=== PATIENT | male | born 1990 | race Caucasian/White ===

== ENCOUNTER 2016-03-06 20:09 | Inpatient (IN) | payer MEDICARE ==
[2016-03-06] MEDS ORDERED: MORPHINE SULFATE 4 MG INJ IV ONE ×2 (20:18→21:51)
[2016-03-06] MEDS ORDERED: Pepcid 20 MG VIAL IV ONE ×2 (20:18→20:37)
[2016-03-06] MEDS ORDERED: Sodium Chloride 0.9% 1000 ML 1,000 ML IV SCH (20:30)
[2016-03-06] MEDS ORDERED: Sodium Chloride 0.9% 1000 ML 1,000 ML ONE (20:37)
[2016-03-06] MEDS ORDERED: MORPHINE SULFATE 4 MG INJ ONE ×2 (20:37→21:54)
[2016-03-06 20:39] LABS: Mean Cell Volume 99.1 fl (78-100); Mean Corpuscular Hemoglobin 32.2 pg (26-32); Mean Platelet Volume 8.9 fl (6-9.5); Platelet Count 208 K/mm3 (150-450); Red Blood Count 3.35 M/mm3 (4.1-5.6)
[2016-03-06 20:52] LABS: White Blood Count 1.5 K/mm3 (4.0-10.5)
[2016-03-06 21:01] LABS: ALBUMIN 4.1 g/dL (3.4-5.0); ALKALINE PHOSPHATASE 230 U/L (46-116); ANION GAP 11.6 MEQ/L (5-15); BILIRUBIN,TOTAL 0.3 mg/dL (0.2-1.0); BLOOD UREA NITROGEN 18 mg/dL (9-20); CHLORIDE 107 mEq/L (98-107); Carbon Dioxide 26.7 mEq/L (21-32); Glucose 113 MG/DL (70-110); LIPASE 303 U/L (73-393); MAGNESIUM 3.9 mg/dL (1.8-2.4); Potassium 4.4 mEq/L (3.5-5.1); SGOT/AST 406 U/L (15-37); SGPT/ALT 509 U/L (12-78); SODIUM 141 mEq/L (136-145); Total Protein 7.4 gm/dL (6.4-8.2)
[2016-03-06 21:05] LABS: Bacteria RARE /HPF (NEGATIVE); COMPLETE URINE MICROSCOPIC? YES; Collection Type CLEAN CATCH; Epithelial Cells FEW /HPF (FEW)
[2016-03-06] MEDS ORDERED: Zofran 4 MG/2 ML VIAL IV ONE (21:09)
[2016-03-06] MEDS ORDERED: Zofran 4 MG/2 ML VIAL ONE (21:11)
--- NOTE | 2016-03-06 21:46 | ERPHSYRPT ---
- History of Present Illness Time Seen by Provider: 03/06/16 20:17 Source: patient, family (mother) Patient Subjective Stated Complaint: pt was removed from the drivers seat of the car bent over crying with abd pain -the pt is moaning and crying with co abd pain -the abd is large rotund and his body is thin Triage Nursing Assessment: pt is awake and alert and able to answer questions Physician History: CC: abd pain Hx: 25 y/o male patient who drove a car here accompanied by his mother. He reports abdominal pain, radiating up to his chest, diarrhea that is copious and continuous. Some nausea. No fever or chills. Symptoms rather severe. Hx is convoluted. He reports prior GERD, hypoglycemia, anemia. Mother states he has had recent bone marrow bx. He reports prior hip fx, osteopenia, twisted bowel and intestinal obstruction, surgery for PUD, and bowel abscess. He reports taking zofran, protonix, and tylenol #3. Social: Nonsmoker, moved here from [place]. Old records from [facility] and [place] were reviewed. He has had several ER visits and admission, usually involving bowel dilatation and possible obstructions. He has had normal Fe, thyroid studies, B12, Vit D levels. Unknown bone marrow bx results. He has had several abnl CT scans. He has had intermittent elevation of transaminases. HIV was check and pt states no hx of HIV. He has signed out of both facililties apparently against advise and this seems to sometimes involve opiod substances. [facility] was considering personality disorder, eating disorder, and malabsorption syndrome. He has osteopenia, multiple old spinal compression fractures. Timing/Duration: today Severity: severe Allergies/Adverse Reactions: clarithromycin [From Biaxin] Allergy (Verified 03/06/16 20:24) erythromycin base Allergy (Verified 03/06/16 20:24) heparin Allergy (Verified 03/06/16 20:24) ketorolac [From Toradol] Allergy (Verified 03/06/16 20:24) Penicillins Allergy (Verified 03/06/16 20:24) prednisone Allergy (Verified 03/06/16 20:24) tramadol Allergy (Verified 03/06/16 20:24) warfarin [From Coumadin] Allergy (Verified 03/06/16 20:24) Home Medications: Codeine Phosphate/APAP #3 [Tylenol #3 Tablet] 1 tab DAILY 03/06/16 [History] Ondansetron HCl [Zofran] 1 tab DAILY 03/06/16 [History] Pantoprazole 20 mg [Protonix 20MG Tablet] 1 tab DAILY 03/06/16 [History] Hx Tetanus, Diphtheria Vaccination/Date Given: Yes Hx Influenza Vaccination/Date Given: No Hx Pneumococcal Vaccination/Date Given: No - Review of Systems Constitutional: Malaise, Weakness, No Fever, No Chills Eyes: No Symptoms, No Vision Changes Ears, Nose, & Throat: No Throat Pain Respiratory: No Cough, No Dyspnea Cardiac: Chest Pain Abdominal/Gastrointestinal: Abdominal Pain, Nausea, Diarrhea Genitourinary Symptoms: No Dysuria Musculoskeletal: Back Pain (chronic) Skin: Rash Neurological: No Focal Weakness All Other Systems: Reviewed and Negative - Past Medical History Pertinent Past Medical History: Yes Respiratory History: Pneumonia GI Medical History: GERD, Hernia, Ulcer Other Medical History: scoliosis - frequent kidney stones - Past Surgical History Past Surgical History: Yes Other Surgical History: bowel resection - PUD repair - hernia repair - Social History Smoking Status: Never smoker Exposure to second hand smoke: No Drug Use: none Patient Lives Alone: No - Nursing Vital Signs Nursing Vital Signs: Initial Vital Signs Temperature 99 F Temperature Source Rectal Pulse Rate 68 Respiratory Rate 16 Blood Pressure 106/50 Pain Intensity 8 - Physical Exam General Appearance: alert, other (cachectic, chronically ill appearing with stigmata of liver disease, pale) Eye Exam: PERRL/EOMI Ears, Nose, Throat Exam: dry mucous membranes Neck Exam: supple Respiratory Exam: normal breath sounds Cardiovascular Exam: regular rate/rhythm Gastrointestinal/Abdomen Exam: soft, tenderness (diffuse discomfort, distended, dilated cutaneous veins) Male Genitalia Exam: other (atrophic genitalia) Extremity Exam: other (edematous feet that are cool with diminished pulses and some acral cyanosis) Neurologic Exam: alert, oriented x 3, other (no focal weakness) Skin Exam: rash (some vitiligo changes, some erythematous rash plaque scattered with well demarcated borders) SpO2: 99 Oxygen Delivery: Room Air - Course Nursing assessment & vital signs reviewed: Yes EKG Interpreted by Me: RATE (65), Sinus Rhythm, NORMAL AXIS, NORMAL INTERVALS ( [id number]), Q-wave (?inferior) - Radiology Exams cxr X-ray Interpretation: Teleradiologist Report (question of patchy left perihilar infiltrate, low lung volumes.) - CT Exams abd/pelvis CT Interpretation: Tele-radiologist Report (adynamic ileus with stomach, small bowel, and colon distended by air and fluid unchanged from prior.) Ordered Tests: Active Orders 24 hr Category Date Time Status Clean Catch Urine Specimen STAT Care 03/06/16 20:18 Active EKG-ER Only STAT Care 03/06/16 20:18 Active IV Insertion STAT Care 03/06/16 20:18 Active ABDOMEN AND PELVIS W CONTRAST [CT] Stat Exams 03/06/16 20:19 Taken CHEST 1 VIEW (PORTABLE) Stat Exams 03/06/16 20:19 Taken CBC W DIFF Stat Lab 03/06/16 20:30 Completed CMP Stat Lab 03/06/16 20:30 Completed LIPASE Stat Lab 03/06/16 20:30 Completed Lactic Acid Urgent Lab 03/06/16 20:18 Completed MAGNESIUM Stat Lab 03/06/16 20:30 Completed Manual Differential NC Stat Lab 03/06/16 20:30 Completed UA W/ MICROSCOPIC Stat Lab 03/06/16 20:50 Completed Urine Triage Profile Stat Lab 03/06/16 20:50 Completed Vitamin B12 Routine Lab 03/06/16 20:30 Completed Transfer Order Routine Transfer 03/06/16 23:52 Ordered Medication Summary Generic Name Dose Route Start Last Admin Trade Name Freq PRN Reason Stop Dose Admin Sodium Chloride 1,000 mls @ 100 mls/hr 03/06/16 20:30 03/06/16 20:39 Sodium Chloride 0.9% 1000 Ml IV 04/05/16 20:29 100 mls/hr .Q10H VALERIA Administration Sodium Chloride 500 mls @ 999 mls/hr 03/06/16 23:50 Sodium Chloride 0.9% 1000 Ml IV 03/07/16 00:20 .Q31M STA Discontinued Medications Generic Name Dose Route Start Last Admin Trade Name Freq PRN Reason Stop Dose Admin Famotidine 20 mg 03/06/16 20:18 03/06/16 20:39 Pepcid 20 Mg Vial IV 03/06/16 20:19 20 mg STAT ONE Administration Famotidine Confirm 03/06/16 20:37 Pepcid 20 Mg Vial Administered 03/06/16 20:38 Dose 20 mg IV .STK-MED ONE Sodium Chloride Confirm 03/06/16 20:37 Sodium Chloride 0.9% 1000 Ml Administered 03/06/16 20:38 Dose 1,000 mls @ ud .ROUTE .STK-MED ONE Morphine Sulfate 4 mg 03/06/16 20:18 03/06/16 20:39 Morphine Sulfate 4 Mg Inj IV 03/06/16 20:19 4 mg STAT ONE Administration Morphine Sulfate Confirm 03/06/16 20:37 Morphine Sulfate 4 Mg Inj Administered 03/06/16 20:38 Dose 4 mg .ROUTE .STK-MED ONE Morphine Sulfate 4 mg 03/06/16 21:51 03/06/16 21:56 Morphine Sulfate 4 Mg Inj IV 03/06/16 21:52 4 mg STAT ONE Administration Morphine Sulfate Confirm 03/06/16 21:54 Morphine Sulfate 4 Mg Inj Administered 03/06/16 21:55 Dose 4 mg .ROUTE .STK-MED ONE Ondansetron HCl 4 mg 03/06/16 21:09 03/06/16 21:16 Zofran 4 Mg/2 Ml Vial IV 03/06/16 21:10 4 mg STAT ONE Administration Ondansetron HCl Confirm 03/06/16 21:11 Zofran 4 Mg/2 Ml Vial Administered 03/06/16 21:12 Dose 4 mg .ROUTE .STK-MED ONE Lab/Rad Data: Laboratory Result Diagrams 03/06/16 20:30 03/06/16 20:30 Laboratory Results 03/06/16 03/06/16 03/06/16 Range/Units 20:50 20:50 20:30 WBC (4.0-10.5) K/mm3 RBC (4.1-5.6) M/mm3 Hgb (12.5-18.0) gm/dl Hct (42-50) % MCV (78-100) fl MCH (26-32) pg MCHC (32-36) g/dl RDW (11.5-14.0) % Plt Count (150-450) K/mm3 MPV (6-9.5) fl Segmented Neutrophils (36.-66.) % Lymphocytes (Manual) (24-44) % Monocytes (Manual) (0.0-12.0) % Differential Comment Platelet Estimate (NORMAL) Anisocytosis Sodium (136-145) mEq/L Potassium (3.5-5.1) mEq/L Chloride (98-107) mEq/L Carbon Dioxide (21-32) mEq/L Anion Gap (5-15) MEQ/L BUN (9-20) mg/dL Creatinine (0.55-1.30) mg/dl Estimated GFR ML/MIN Glucose (70-110) MG/DL Lactic Acid (0.4-2.0) Calcium (8.5-10.1) mg/dL Magnesium (1.8-2.4) mg/dL Total Bilirubin (0.2-1.0) mg/dL AST (15-37) U/L ALT (12-78) U/L Alkaline Phosphatase (46-116) U/L Ammonia 26 (11-32) MMOL/l Serum Total Protein (6.4-8.2) gm/dL Albumin (3.4-5.0) g/dL Lipase (73-393) U/L Vitamin B12 (193-986) Ur Collection Type CLEAN CATCH Urine Color YELLOW (YELLOW) Urine Appearance CLEAR (CLEAR) Urine pH 9.0 (5-6) Ur Specific [place] 1.020 (1.005-1.025) Urine Protein 30 (Negative) Urine Glucose (UA) NEGATIVE (NEGATIVE) mg/dL Urine Ketones NEGATIVE (NEGATIVE) Urine Nitrite NEGATIVE (NEGATIVE) Urine Bilirubin NEGATIVE (NEGATIVE) Urine Urobilinogen 0.2 (0-1) mg/dL Urine WBC (Auto) NEGATIVE (NEGATIVE) Urine RBC (Auto) NEGATIVE (0-5) Hermes/ul Ur Epithelial Cells FEW (FEW) /HPF Urine Bacteria RARE (NEGATIVE) /HPF Urine Opiates Level POS. (NEGATIVE) Ur Methadone NEG. (NEGATIVE) Urine Barbiturates NEG. (NEGATIVE) Ur Phencyclidine (PCP) NEG. (NEGATIVE) Urine Amphetamine NEG. (NEGATIVE) U Benzodiazepine Level NEG. (NEGATIVE) Urine Cocaine NEG. (NEGATIVE) Urine Marijuana (THC) NEG. (NEGATIVE) Specimen Received 03/06/16:2150 03/06/16 03/06/16 03/06/16 Range/Units 20:30 20:30 20:30 WBC 1.5 L* (4.0-10.5) K/mm3 RBC 3.35 L (4.1-5.6) M/mm3 Hgb 10.8 L (12.5-18.0) gm/dl Hct 33.2 L (42-50) % MCV 99.1 (78-100) fl MCH 32.2 H (26-32) pg MCHC 32.5 (32-36) g/dl RDW 13.0 (11.5-14.0) % Plt Count 208 (150-450) K/mm3 MPV 8.9 (6-9.5) fl Segmented Neutrophils 67 H (36.-66.) % Lymphocytes (Manual) 24 (24-44) % Monocytes (Manual) 9 (0.0-12.0) % Differential Comment ABNORMAL Platelet Estimate NORMAL (NORMAL) Anisocytosis 1+ Sodium 141 (136-145) mEq/L Potassium 4.4 (3.5-5.1) mEq/L Chloride 107 (98-107) mEq/L Carbon Dioxide 26.7 (21-32) mEq/L Anion Gap 11.6 (5-15) MEQ/L BUN 18 (9-20) mg/dL Creatinine 0.72 (0.55-1.30) mg/dl Estimated GFR > 60 ML/MIN Glucose 113 H (70-110) MG/DL Lactic Acid (0.4-2.0) Calcium 8.2 L (8.5-10.1) mg/dL Magnesium 3.9 H (1.8-2.4) mg/dL Total Bilirubin 0.3 (0.2-1.0) mg/dL AST 406 H (15-37) U/L ALT 509 H (12-78) U/L Alkaline Phosphatase 230 H (46-116) U/L Ammonia (11-32) MMOL/l Serum Total Protein 7.4 (6.4-8.2) gm/dL Albumin 4.1 (3.4-5.0) g/dL Lipase 303 (73-393) U/L Vitamin B12 1081 H (193-986) Ur Collection Type Urine Color (YELLOW) Urine Appearance (CLEAR) Urine pH (5-6) Ur Specific [place] (1.005-1.025) Urine Protein (Negative) Urine Glucose (UA) (NEGATIVE) mg/dL Urine Ketones (NEGATIVE) Urine Nitrite (NEGATIVE) Urine Bilirubin (NEGATIVE) Urine Urobilinogen (0-1) mg/dL Urine WBC (Auto) (NEGATIVE) Urine RBC (Auto) (0-5) Hermes/ul Ur Epithelial Cells (FEW) /HPF Urine Bacteria (NEGATIVE) /HPF Urine Opiates Level (NEGATIVE) Ur Methadone (NEGATIVE) Urine Barbiturates (NEGATIVE) Ur Phencyclidine (PCP) (NEGATIVE) Urine Amphetamine (NEGATIVE) U Benzodiazepine Level (NEGATIVE) Urine Cocaine (NEGATIVE) Urine Marijuana (THC) (NEGATIVE) Specimen Received 03/06/16 Range/Units 20:18 WBC (4.0-10.5) K/mm3 RBC (4.1-5.6) M/mm3 Hgb (12.5-18.0) gm/dl Hct (42-50) % MCV (78-100) fl MCH (26-32) pg MCHC (32-36) g/dl RDW (11.5-14.0) % Plt Count (150-450) K/mm3 MPV (6-9.5) fl Segmented Neutrophils (36.-66.) % Lymphocytes (Manual) (24-44) % Monocytes (Manual) (0.0-12.0) % Differential Comment Platelet Estimate (NORMAL) Anisocytosis Sodium (136-145) mEq/L Potassium (3.5-5.1) mEq/L Chloride (98-107) mEq/L Carbon Dioxide (21-32) mEq/L Anion Gap (5-15) MEQ/L BUN (9-20) mg/dL Creatinine (0.55-1.30) mg/dl Estimated GFR ML/MIN Glucose (70-110) MG/DL Lactic Acid 2.1 H (0.4-2.0) Calcium (8.5-10.1) mg/dL Magnesium (1.8-2.4) mg/dL Total Bilirubin (0.2-1.0) mg/dL AST (15-37) U/L ALT (12-78) U/L Alkaline Phosphatase (46-116) U/L Ammonia (11-32) MMOL/l Serum Total Protein (6.4-8.2) gm/dL Albumin (3.4-5.0) g/dL Lipase (73-393) U/L Vitamin B12 (193-986) Ur Collection Type Urine Color (YELLOW) Urine Appearance (CLEAR) Urine pH (5-6) Ur Specific [place] (1.005-1.025) Urine Protein (Negative) Urine Glucose (UA) (NEGATIVE) mg/dL Urine Ketones (NEGATIVE) Urine Nitrite (NEGATIVE) Urine Bilirubin (NEGATIVE) Urine Urobilinogen (0-1) mg/dL Urine WBC (Auto) (NEGATIVE) Urine RBC (Auto) (0-5) Hermes/ul Ur Epithelial Cells (FEW) /HPF Urine Bacteria (NEGATIVE) /HPF Urine Opiates Level (NEGATIVE) Ur Methadone (NEGATIVE) Urine Barbiturates (NEGATIVE) Ur Phencyclidine (PCP) (NEGATIVE) Urine Amphetamine (NEGATIVE) U Benzodiazepine Level (NEGATIVE) Urine Cocaine (NEGATIVE) Urine Marijuana (THC) (NEGATIVE) Specimen Received - Progress Progress Note: 03/06/16 22:29 Pt was given zofran, morphine. He appears to have a significant chronic illness with decline. His and his mother's insight into the illness is questionable. Likely has some malabsorption syndrome with associated vitamin deficiencies. ? pellagra? He appears to have stigmata of liver disease. Liver enzymes are again markedly elevated. 03/06/16 22:58 Met with pt and mother. Discussed lab tests here and what is available from [facility]. He appears to have a significant problem. He is very cachectic. He has copious nonbloody diarrhea flowing out here. He asked for addl pain medications. Advised pt he appears to have a malabsoprtion problems and it appears he has decline which likely will end in if the process is not interupted. 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 He does not want transfer. Advised if he goes home it is against out medical advise as he appears to be ill. Mother is considering taking him back to [facility] or [facility] for speciality care as he has been seen at both in the past. He will decide course of action. 03/06/16 23:56 Pt decided for admission here. Called Dr Maza() who agrees for observation, IVF and further care. Counseled pt/family regarding: lab results, diagnosis, need for follow-up, rad results - Departure Time of Disposition: 23:56 Departure Disposition: Observation Clinical Impression: copious diarrhea, Malnutrition, Chronic abdominal pain, Adynamic ileus, Elevated transaminase level Condition: Fair Critical Care Time: No Referrals: DOCTOR,NO FAMILY [Primary Care Provider] -
[2016-03-06 22:11] LABS: ANISOCYTOSIS 1+; Platelet Estimate NORMAL (NORMAL); Total Cells Counted 100
[2016-03-07] MEDS ORDERED: TYLENOL 325 MG PO PRN (00:36)
[2016-03-07] MEDS: D5W/0.45NS W/ 20mEq KCl 1000 ML 1,000 ML IV SCH ×3 (01:22→18:10)
[2016-03-07] MEDS: MORPHINE SULFATE 4 MG INJ IV PRN ×6 (01:22→22:20)
[2016-03-07 06:29] LABS: Mean Cell Volume 100.4 fl (78-100); Mean Corpuscular Hemoglobin 32.7 pg (26-32); Mean Platelet Volume 9.2 fl (6-9.5); Platelet Count 161 K/mm3 (150-450); Red Blood Count 2.78 M/mm3 (4.1-5.6); Red Cell Distribution Width 12.8 % (11.5-14.0)
[2016-03-07 06:33] LABS: White Blood Count 0.7 K/mm3 (4.0-10.5)
[2016-03-07 06:35] LABS: ALBUMIN 3.3 g/dL (3.4-5.0); ALKALINE PHOSPHATASE 190 U/L (46-116); ANION GAP 9.2 MEQ/L (5-15); BILIRUBIN,TOTAL 0.3 mg/dL (0.2-1.0); BLOOD UREA NITROGEN 15 mg/dL (9-20); CHLORIDE 107 mEq/L (98-107); Carbon Dioxide 25.1 mEq/L (21-32); Glucose 82 MG/DL (70-110); Potassium 4.8 mEq/L (3.5-5.1); SGOT/AST 228 U/L (15-37); SGPT/ALT 352 U/L (12-78); SODIUM 137 mEq/L (136-145); Total Protein 5.9 gm/dL (6.4-8.2)
[2016-03-07 09:04] LABS: ATYPICAL LYMPHS 1 %; Eosinophil 3 % (0.00-3.0); Total Cells Counted 100
[2016-03-07 09:05] LABS: ANISOCYTOSIS 1+; Platelet Estimate NORMAL (NORMAL); Poikilocytosis 1+
--- NOTE | 2016-03-07 09:36 | XRAY ---
Indication: Abdominal pain and chronic diarrhea. Multiple contiguous axial images obtained through the abdomen and pelvis using 80 cc of Isovue 370 contrast only. Comparison: February 09, 2016 Lung bases remain hyperinflated with bibasilar fibrosis/scarring. Heart is not enlarged. Again there is paucity of mesenteric fat. There remains marked fluid distended stomach and small/large bowel loops with synchronous fluid leveling favoring ileus similar to the previous exam. No free fluid/air. Reported cholecystectomy. Remaining liver, pancreas, spleen, adrenal glands, kidneys, bladder, and aorta appear unremarkable. Osseous structures remain demineralized again with multilevel thoracolumbar compression deformities. Impression: No appreciable interval change again demonstrating fluid distended stomach and bowel loops with synchronous fluid leveling favoring ileus. Early/mild obstruction not completely excluded in the right clinical setting. No new intra-abdominal/pelvic abnormalities. Also stable osteopenia and multilevel lumbar compression deformities. Comment: Preliminary interpretation was made by C. No discrepancy. CTDI is 11.49
--- NOTE | 2016-03-07 09:40 | XRAY ---
Indication: Abdominal pain. Comparison: None Portable chest demonstrates markedly underinflated chest with left lung infiltrates versus atelectasis without consolidation or large effusion. Right lung clear. Heart is nonenlarged. Bony thorax intact. Abnormally air distended stomach and bowel loops. Impression: 1. Underinflated chest with left lung infiltrates versus atelectasis. Correlate clinically. 2. Abnormal air distended stomach and bowel loops further detailed on same-day CT abdomen/pelvis study. Comment: Preliminary interpretation was made by [facility]. No discrepancy.
[2016-03-07] MEDS: Zofran 4 MG/2 ML VIAL IV PRN (23:35)
[2016-03-08] MEDS: D5W/0.45NS W/ 20mEq KCl 1000 ML 1,000 ML IV SCH (02:12)
[2016-03-08] MEDS: MORPHINE SULFATE 4 MG INJ IV PRN ×6 (02:20→22:29)
[2016-03-08] MEDS: Zofran 4 MG/2 ML VIAL IV PRN ×3 (06:19→20:17)
[2016-03-08] MEDS ORDERED: PHARMACY DOSING REQUEST MC ONE (09:01)
[2016-03-08 09:19] LABS: Mean Cell Volume 100.7 fl (78-100); Mean Platelet Volume 9.8 fl (6-9.5); Platelet Count 177 K/mm3 (150-450); Red Cell Distribution Width 12.7 % (11.5-14.0)
[2016-03-08] MEDS: [UNRECOGNIZED DRUG - OTHER] IV SCH ×8 (09:40→22:33)
[2016-03-08 09:42] LABS: White Blood Count 1.3 K/mm3 (4.0-10.5)
[2016-03-08 10:09] LABS: ANION GAP 7.3 MEQ/L (5-15); BLOOD UREA NITROGEN 9 mg/dL (9-20); CHLORIDE 107 mEq/L (98-107); Carbon Dioxide 35.9 mEq/L (21-32); Glucose 90 MG/DL (70-110); Potassium 3.9 mEq/L (3.5-5.1); SODIUM 146 mEq/L (136-145)
[2016-03-08 10:20] LABS: ANISOCYTOSIS 1+; ATYPICAL LYMPHS 5 %; BAND 2 % (0.0-2.0); Platelet Estimate NORMAL (NORMAL); Poikilocytosis 2+; Total Cells Counted 100
[2016-03-08 10:21] LABS: Toxic Granulation 1+
--- NOTE | 2016-03-08 11:44 | HP ---
HISTORY OF PRESENT ILLNESS: This is a 25 year-old man without a physician in the local area. He presented to the emergency department with severe diarrhea, this has been an ongoing problem for him over at least the past year. He has been at both [facility] and [facility] with similar problems and has been overnight at those hospitals. He has seen Dr. Kelly and Dr. Retana because he also has leukopenia. He was most recently in the emergency room at [facility] on 03/01/2016. The patient reports eight to nine years ago he had laparotomy for a perforated peptic ulcer. I also took some of his history from his past medical records that were obtained by the emergency room doctor last night. In 2014, he had a laparoscopy emergently at [facility] for a twisted bowel and since then he had three loose stools per day. His old records say that he had a bone marrow biopsy at [facility] in [place] but I do not have the results of this. There is a report in 2007 of him having pancreatitis and Clostridium difficile. He has had ultrasounds and CT in 02/29/2016 that have revealed diffuse abdominal and pelvic ascites and hepatic steatosis. He had HIV test done 02/10/2016 that was negative. Hepatitis A, B and C were also checked at that same time and were negative. He had a stool culture on 02/22/2016 that did not grow anything. He had TSH checked on 02/19/2016 that was normal. The patient reports he continues to have abdominal pain and distention. He reports the pain is diffuse. He continues to have perfuse stools that he cannot control. He also reports some pain in his right bottom on the skin. Although he has pain the patient wants to try to advance his diet so we let him eat some crackers. The patient reports he has a history of being lactose intolerant and he does not remember ever being tested for celiac disease but he reports before moving to the [place] he had a provider scribe in [place] that did extensive testing. Again, I do not have any results from this. REVIEW OF SYSTEMS: As noted in the history of present illness. He also denies any fever. PAST MEDICAL HISTORY: Weight loss, malnutrition, chronic diarrhea, pancreatitis, history of Clostridium difficile in 2007. PAST SURGICAL HISTORY: Laparotomy for the perforated peptic ulcer, laparotomy for twisted bowel in 2014 at . He reports a surgery for abscess on his back. Bone marrow biopsy. MEDICATIONS: Tylenol #3 one tablet daily as needed, Zofran 1 tablet daily, pantoprazole 20 mg daily. ALLERGIES: CLARITHROMYCIN, ERYTHROMYCIN, HEPARIN, KETORLAC, WARFARIN, PREDNISONE, TRAMADOL, PENICILLIN. SOCIAL HISTORY: He reports his mother is visiting him here in [place]. He denies any alcohol. He denies tobacco or any illicit drugs or any street drugs. FAMILY HISTORY: Not obtained yet. LABORATORY DATA AND TESTS: His white blood cell count was 0.7 with 51% neutrophils, 41% lymphocytes, hemoglobin 9.1, PLT 161,000. CMP revealed AST 228 down from 406 yesterday, ALT 352 down from 509 yesterday. Alkaline phosphatase 190 down from 230, albumin 3.3. UA negative. Urine tox positive for opiates. He had a CT scan of his abdomen and pelvis which revealed fluid distended stomach and bowel loops with fluid leveling favoring ileus or early mild obstruction not completely in the right clinical setting. No new intra-abdominal or pelvic abnormalities, also stable osteopenia and multilevel lumbar compression deformity. Please see the radiologist report for the full dictation. He also had chest x-ray that was read as underinflated chest with left lung infiltrate versus atelectasis, correlate clinically. Abdominal air distended stomach and bowel loops. ASSESSMENT AND PLAN: 1) Chronic diarrhea. I plan to send studies off to screen for celiac disease as well as cytomegalovirus (CMV), will recheck a stool culture which has already been ordered and Clostridium difficile which has already been ordered. I will also add ova and parasite to this as well. Will try to obtain as many old records as possible. Will continue with IV fluids and close monitoring. 2) Leukopenia. Will try to Dr. Retana's notes. The patient has been afebrile. He has been in reverse isolation. 3) Poor nutrition. The patient reports he is unable to add anything like butter or take Ensure so will continue to advance his diet as tolerated but right now his pain is so bad that he is requiring IV morphine so I told him it would be better to stick with the liquids and the crackers for now.
--- NOTE | 2016-03-08 12:03 | XRAY ---
Indication: Lower abdominal pain. Dilated bowel. Comparison: CT abdomen/pelvis and portable chest one day earlier. 2 views of the abdomen demonstrates air distended stomach and small/large bowel loops with synchronous fluid leveling favoring ileus. No focal bowel dilatation or free air. Solid organs obscured but no gross organomegaly or pathologic visceral calcifications. Single PA chest is slightly better inflated with persistent left hemidiaphragm elevation and minimal bibasilar infiltrates/atelectasis. Heart is not enlarged. No new cardiopulmonary abnormalities. Impression: 1. Stable air distended stomach and bowel loops are Cygnus fluid leveling favoring ileus. 2. Persistent left hemidiaphragm elevation with stable minimal bibasilar infiltrates/atelectasis. No new cardiopulmonary abnormalities.
--- NOTE | 2016-03-08 17:39 | PCM.NOTE ---
Date and Time: 03/08/16 173 Subjective Assessment: He continues to complain of abdominal pain. He reports the pain medication helps. He continues to have loose stools. - Review of Systems Constitutional: Fatigue Eyes: No Symptoms Ears, Nose, & Throat: No Symptoms Respiratory: No Symptoms Cardiac: No Symptoms Abdominal/Gastrointestinal: Abdominal Pain, Diarrhea Genitourinary Symptoms: No Symptoms Musculoskeletal: Other (underlying weakness and trouble walking.) Objective Exam General Appearance: no apparent distress, cachetic, thin, other (Mother at bedside) Neurologic Exam: alert, cooperative, other (anxious) Skin Exam: normal color, warm, dry Respiratory Exam: normal breath sounds, lungs clear, No crackles/rales, No rhonchi, No wheezing Cardiovascular Exam: regular rate/rhythm, normal heart sounds, No murmur, No friction rub, No gallop Gastrointestinal/Abdomen Exam: other (distended, prominant veins over abdomen, hyperactive bowel sounds, no guarding, no rigidity.) Extremity Exam: normal inspection, other (no c/c/e) OBJECTIVE DATA Vital Signs: Vital Signs - 24 hr Temp Pulse Resp BP Pulse Ox 03/08/16 16:00 99.1 F 91 H 19 130/62 96 03/08/16 12:00 100.0 F 101 H 20 131/93 95 03/08/16 07:17 99.6 F 98 H 19 105/52 91 L 03/08/16 04:00 99 F 80 18 114/57 93 L 03/08/16 00:00 98.5 F 69 19 127/57 94 L 03/07/16 20:00 98.5 F 75 17 111/57 97 Pain Assessment - Last Documented Pain Intensity 10 Pain Scale Used 0-10 Pain Scale Intake and Output: Intake & Output 03/06/16 03/07/16 03/08/16 03/09/16 06:59 06:59 06:59 06:59 Intake Total 100 Balance 100 Weight 57.742 kg Radiology Exams: Radiology Procedures Category Date Time Status OBSTR/ACUTE ABDOMEN SERIES Urgent Exams 03/08/16 09:02 Completed Assessment/Plan (1) Adynamic ileus Current Visit: Yes Status: Acute Assessment & Plan: Discussed with radiologist. His CT scan shows ileus. We will encourage patient to try NG which according to his records from other institutions he has been reluctant to do. Code(s): K56.0 - PARALYTIC ILEUS (2) Chronic diarrhea Current Visit: Yes Status: Acute Assessment & Plan: Studies sent off for CMV, celiac disease, stool cx, ova and parasites. Code(s): K52.9 - NONINFECTIVE GASTROENTERITIS AND COLITIS, UNSPECIFIED (3) Leukopenia Current Visit: Yes Status: Acute Assessment & Plan: Dr. Retana consulted. Stable at this time. In isolation for precaution for patient. Code(s): D72.819 - DECREASED WHITE BLOOD CELL COUNT, UNSPECIFIED (4) Malnutrition Current Visit: Yes Status: Acute Assessment & Plan: Dietary consult. Will add multivitamin to IV fluids. Code(s): E46 - UNSPECIFIED PROTEIN-CALORIE MALNUTRITION
[2016-03-08] MEDS ORDERED: D5W/0.45NS W/ 20mEq KCl 1000 ML 1,000 ML IV ONE (22:22)
[2016-03-09] MEDS: MORPHINE SULFATE 4 MG INJ IV PRN ×5 (04:20→20:48)
[2016-03-09] MEDS: Zofran 4 MG/2 ML VIAL IV PRN ×3 (06:19→20:48)
[2016-03-09 08:01] LABS: PH, VENOUS 7.45 (7.35-7.45); Specimen Type Ionized Calcium Serum
--- NOTE | 2016-03-09 09:01 | PCM.NOTE ---
Date and Time: 03/09/16 0853 Subjective Assessment: He reports continued abdominal pain. After discussion he is agreeable to a small NG being placed. His mom is at the bedside. She reports he would always have an NG when he was hospitalized in [place] and he had one when he was at [place]. He reports continued frequent diarrhea. He is opposed to receiving TPN. His mom said he often counts calories at home. Objective Exam General Appearance: cachetic, thin, other (mother at bedside) Neurologic Exam: alert, cooperative, normal mood/affect Skin Exam: normal color, warm, dry, No rash Respiratory Exam: normal breath sounds, No crackles/rales, No rhonchi, No wheezing Cardiovascular Exam: regular rate/rhythm, normal heart sounds, No murmur, No friction rub, No gallop Gastrointestinal/Abdomen Exam: distention, other (hypoactive bowel sounds; mild diffuse tenderness, prominant veins on abdomen.), No mass, No guarding Extremity Exam: other (no c/c/e) OBJECTIVE DATA Vital Signs: Vital Signs - 24 hr Temp Pulse Resp BP Pulse Ox 03/09/16 07:38 98.6 F 75 20 100/58 96 03/09/16 04:00 98.7 F 80 19 95/47 99 03/09/16 00:00 98.0 F 78 19 94/46 96 03/08/16 20:00 98.8 F 87 87 H 139/85 91 L 03/08/16 16:00 99.1 F 91 H 19 130/62 96 03/08/16 12:00 100.0 F 101 H 20 131/93 95 Pain Assessment - Last Documented Pain Intensity 10 Pain Scale Used 0-10 Pain Scale Intake and Output: Intake & Output 03/07/16 03/08/16 03/09/16 03/10/16 06:59 06:59 06:59 06:59 Intake Total 300 2198 Balance 300 2198 Weight 57.742 kg 56.88 kg Radiology Exams: Radiology Procedures Category Date Time Status OBSTR/ACUTE ABDOMEN SERIES Urgent Exams 03/08/16 09:02 Completed Assessment/Plan (1) Adynamic ileus Current Visit: Yes Status: Acute Assessment & Plan: Place NG today to low intermittent suction to try to relieve pressure and pain. Code(s): K56.0 - PARALYTIC ILEUS (2) Chronic diarrhea Current Visit: Yes Status: Acute Assessment & Plan: Checking C.diff which the computer says has not been collected. Stool culture ordered. Will check fecal reducing substances and fecal pH. May be from malnutrition vs. bacterial overgrowth vs viral vs. C.diff vs. bacterial. Will try to obtain records from [place] as well. Code(s): K52.9 - NONINFECTIVE GASTROENTERITIS AND COLITIS, UNSPECIFIED (3) Leukopenia Current Visit: Yes Status: Acute Assessment & Plan: Water Fitness Instructor consulted. Appears chronic. Code(s): D72.819 - DECREASED WHITE BLOOD CELL COUNT, UNSPECIFIED (4) Malnutrition Current Visit: Yes Status: Acute Assessment & Plan: Patient refuses tpn. Unable to advance diet to distension of colon, stomach and small bowel with air and fluid due to ileus. Skid Adzer consulted. I am concerned this patient may have some problems with anorexia as well although he obviously has some other medical problems too. TSH and Vit B 12 level were normal. Code(s): E46 - UNSPECIFIED PROTEIN-CALORIE MALNUTRITION (5) Folic acid deficiency Current Visit: Yes Status: Acute Assessment & Plan: Replacing folic acid in IV fluids. Code(s): E53.8 - DEFICIENCY OF OTHER SPECIFIED B GROUP VITAMINS
[2016-03-09 10:15] LABS: IGA QUANTITATIVE 84 mg/dL (70-400)
[2016-03-09] MEDS: [UNRECOGNIZED DRUG - OTHER] IV SCH ×5 (10:30)
[2016-03-09 15:24] LABS: Mean Cell Volume 100.7 fl (78-100); Mean Corpuscular Hemoglobin 32.7 pg (26-32); Mean Platelet Volume 8.8 fl (6-9.5); Platelet Count 157 K/mm3 (150-450); Red Blood Count 2.72 M/mm3 (4.1-5.6); Red Cell Distribution Width 12.5 % (11.5-14.0); White Blood Count 2.9 K/mm3 (4.0-10.5)
[2016-03-10] MEDS ORDERED: D5W/0.45NS W/ 20mEq KCl 1000 ML 1,000 ML IV ONE (00:26)
[2016-03-10] MEDS: [UNRECOGNIZED DRUG - OTHER] IV SCH ×10 (00:28→12:28)
[2016-03-10] MEDS: MORPHINE SULFATE 4 MG INJ IV PRN ×4 (00:47→13:00)
[2016-03-10] MEDS: Zofran 4 MG/2 ML VIAL IV PRN ×3 (05:06→20:28)
--- NOTE | 2016-03-10 09:00 | PCM.NOTE ---
Date and Time: 03/10/16 0855 Subjective Assessment: He refused an NG yesterday. His mom would like a KUB before we put an NG in today. He reports he has not been eating but bottles of fluid by the bedside. He continues to complain of abdominal pain and diarrhea. He reports he wants his morphine dose to stay the same. His mom reports when he is at home he can shop for himself and drive a car. Offered tele mental health consult for concerns about his mood with anxiety and depression but he refuses. - Review of Systems Constitutional: No Symptoms Eyes: No Symptoms Respiratory: No Symptoms Cardiac: No Symptoms Abdominal/Gastrointestinal: Abdominal Pain, Diarrhea, No Nausea, No Vomiting Genitourinary Symptoms: No Symptoms Musculoskeletal: No Symptoms Objective Exam General Appearance: cachetic, thin Neurologic Exam: alert, cooperative, other (tearful, crying when I talked about decreasing his pain medicaoitn.) Skin Exam: normal color Cardiovascular Exam: regular rate/rhythm, normal heart sounds, No murmur, No friction rub, No gallop Gastrointestinal/Abdomen Exam: soft, normal bowel sounds, No tenderness, No distention, No mass Extremity Exam: other (thin, no c/c/e, right buttocks with 1 x 1 cm are of nonblanching erythema.) OBJECTIVE DATA Vital Signs: Vital Signs - 24 hr Temp Pulse Resp BP Pulse Ox 03/10/16 07:22 98 F 64 20 110/54 96 03/10/16 04:00 98.4 F 15 109/56 95 03/10/16 00:00 98.6 F 71 20 99/53 97 03/09/16 20:00 98.8 F 78 18 111/66 96 03/09/16 16:43 98.4 F 03/09/16 16:00 98.3 F 64 18 95/53 98 03/09/16 12:33 98.4 F 03/09/16 11:29 98.4 F 70 20 97/51 97 Pain Assessment - Last Documented Pain Intensity 3 Pain Scale Used 0-10 Pain Scale Intake and Output: Intake & Output 03/08/16 03/09/16 03/10/16 03/11/16 06:59 06:59 06:59 06:59 Intake Total 300 4323 Balance 300 4323 Weight 57.742 kg 56.88 kg 57.334 kg Lab Results: Lab Results-Last 24 Hours 03/08/16 03/09/16 Range/Units 09:04 15:12 WBC 2.9 L (4.0-10.5) K/mm3 RBC 2.72 L (4.1-5.6) M/mm3 Hgb 8.9 L (12.5-18.0) gm/dl Hct 27.4 L (42-50) % MCV 100.7 H (78-100) fl MCH 32.7 H (26-32) pg MCHC 32.5 (32-36) g/dl RDW 12.5 (11.5-14.0) % Plt Count 157 (150-450) K/mm3 MPV 8.8 (6-9.5) fl Peripher Smr Path Cons Radiology Exams: Radiology Procedures Category Date Time Status KUB Routine Exams 03/10/16 08:33 Ordered OBSTR/ACUTE ABDOMEN SERIES Urgent Exams 03/08/16 09:02 Completed Multi-Disciplinary Progress Notes: Multi-Disciplinary Progress Notes 03/09/16 10:00 (created 03/09/16 14:13) Case Management Note by Aurelia Villatoro CONTINUES TO DECLINE NEEDS FOR DISCHARGE. NORMALLY INDEPENDENT WITH ALL ADL'S. PLAN TO RETURN HOME TO PRE EPISODIC LEVEL OF [facility]. MOTHER AT HOME TO ASSIST IF NEEDED. Initialized on 03/09/16 14:13 - END OF NOTE Assessment/Plan (1) Adynamic ileus Current Visit: Yes Status: Acute Assessment & Plan: Check KUB and then plan on trying NG again. Code(s): K56.0 - PARALYTIC ILEUS (2) Chronic diarrhea Current Visit: Yes Status: Acute Assessment & Plan: CMV studies negative, screening for celiac disease negative, stool culture neg. C. Diff uncollected. Fecal reducing substances in lab. Stool pH ordered. Code(s): K52.9 - NONINFECTIVE GASTROENTERITIS AND COLITIS, UNSPECIFIED (3) Leukopenia Current Visit: Yes Status: Acute Assessment & Plan: Improved yesterday. Recheck today. Dr. Retana to see today. Code(s): D72.819 - DECREASED WHITE BLOOD CELL COUNT, UNSPECIFIED (4) Malnutrition Current Visit: Yes Status: Acute Assessment & Plan: Patient refuses TPN. Unable to do oral nutrition as he has an ileus now and abdominal pain. Patient may have underlying anorexia. Code(s): E46 - UNSPECIFIED PROTEIN-CALORIE MALNUTRITION (5) Folic acid deficiency Current Visit: Yes Status: Acute Assessment & Plan: Replacing in his IV fluids. Code(s): E53.8 - DEFICIENCY OF OTHER SPECIFIED B GROUP VITAMINS
[2016-03-10 09:34] LABS: ALBUMIN 3.2 g/dL (3.4-5.0); ALKALINE PHOSPHATASE 177 U/L (46-116); BILIRUBIN,TOTAL 0.4 mg/dL (0.2-1.0); BLOOD UREA NITROGEN 6 mg/dL (9-20); CHLORIDE 105 mEq/L (98-107); Carbon Dioxide 31.6 mEq/L (21-32); Glucose 84 MG/DL (70-110); Potassium 4.1 mEq/L (3.5-5.1); SGOT/AST 46 U/L (15-37); SGPT/ALT 149 U/L (12-78); SODIUM 141 mEq/L (136-145)
[2016-03-10 09:55] LABS: Mean Cell Volume 99.6 fl (78-100); Mean Platelet Volume 9.4 fl (6-9.5); Platelet Count 171 K/mm3 (150-450); Red Blood Count 2.84 M/mm3 (4.1-5.6); Red Cell Distribution Width 12.5 % (11.5-14.0); White Blood Count 2.1 K/mm3 (4.0-10.5)
[2016-03-10 09:56] LABS: Mean Corpuscular Hemoglobin 32.3 pg (26-32)
--- NOTE | 2016-03-10 12:11 | XRAY ---
Indication: Lower abdominal pain. Comparison: March 08, 2016 KUB unchanged again demonstrating abnormal air distended stomach and small/large bowel loops similar in appearance to the previous study and again obscures underlying solid organs. No new abnormalities.
[2016-03-10] MEDS ORDERED: VALIUM 10 MG/2 ML SYRINGE IV PRN (15:29)
[2016-03-10] MEDS ORDERED: MORPHINE SULFATE 4 MG INJ IV ONE (16:15)
[2016-03-10] MEDS ORDERED: MORPHINE SULFATE 2 MG INJ IV PRN (16:17)
[2016-03-10] MEDS ORDERED: MORPHINE SULFATE 2 MG INJ IV ONE (21:00)
[2016-03-11] MEDS ORDERED: D5W/0.45NS W/ 20mEq KCl 1000 ML 1,000 ML IV ONE ×2 (00:55→07:51)
[2016-03-11] MEDS: [UNRECOGNIZED DRUG - OTHER] IV SCH ×15 (01:16→12:26)
[2016-03-11] MEDS: MORPHINE SULFATE 4 MG INJ IV PRN ×2 (03:34→07:54)
[2016-03-11] MEDS: Zofran 4 MG/2 ML VIAL IV PRN ×3 (03:45→18:54)
[2016-03-11 05:53] LABS: Mean Cell Volume 99.6 fl (78-100); Mean Platelet Volume 8.7 fl (6-9.5); Platelet Count 181 K/mm3 (150-450); Red Blood Count 2.75 M/mm3 (4.1-5.6); Red Cell Distribution Width 12.4 % (11.5-14.0)
[2016-03-11 06:14] LABS: ALBUMIN 3.1 g/dL (3.4-5.0); ALKALINE PHOSPHATASE 170 U/L (46-116); ANION GAP 6.9 MEQ/L (5-15); BILIRUBIN,TOTAL 0.4 mg/dL (0.2-1.0); BLOOD UREA NITROGEN 6 mg/dL (9-20); CHLORIDE 104 mEq/L (98-107); Carbon Dioxide 31.1 mEq/L (21-32); Glucose 76 MG/DL (70-110); Potassium 4.2 mEq/L (3.5-5.1); SGOT/AST 52 U/L (15-37); SGPT/ALT 104 U/L (12-78); SODIUM 138 mEq/L (136-145); Total Protein 5.9 gm/dL (6.4-8.2)
[2016-03-11 06:15] LABS: Mean Corpuscular Hemoglobin 32.3 pg (26-32)
[2016-03-11 06:16] LABS: White Blood Count 1.1 K/mm3 (4.0-10.5)
[2016-03-11 08:06] LABS: Eosinophil 2 % (0.00-3.0); Total Cells Counted 100
[2016-03-11 08:07] LABS: ANISOCYTOSIS 1+; Poikilocytosis 1+
[2016-03-11 08:08] LABS: Platelet Estimate NORMAL (NORMAL)
--- NOTE | 2016-03-11 08:35 | XRAY ---
Indication: NG tube placement. Comparison: Taken earlier in the day. KUB demonstrates new NG tube with the tip at approximately the GE junction. Recommend further advancement. Remaining KUB unchanged again with abnormal air distended stomach and small/large bowel loops. Comment: Preliminary interpretation was made by [facility]. No discrepancy.
--- NOTE | 2016-03-11 09:00 | CONS ---
CONSULT DATE: 03/10/2016 REASON FOR CONSULT: Leukopenia and anemia of unclear etiology. HISTORY: Mitchel Bal is a 25 year-old white male known to me recently about a month ago for similar problem. I admitted him with abdominal pain, diarrhea with unclear etiology. The patient had multiple tests done for Clostridium difficile and it was negative. Currently the patient has abdominal distention, abdominal pain. The patient has a nasogastric tube and the patient receiving total parenteral nutrition and the patient is requiring more pain medication. The patient has been having multiple problems, multiple admissions in different hospitals. The patient was in the past in [place] and came to [place] recently and wanted to get care here. He in the past had also chronic anemia for that the patient said he had two times bone marrow biopsies and it was found there was no leukemia but the bone marrow is slow. The patient denies any fever, chills, cough, chest pain, sore throat, headache, blurring of vision. The patient denies any obvious bleeding. On 03/07/2016 at the time of admission his white blood cell count was 0.8, hemoglobin 9.1, PLT 170,000. The CBC improved on 03/10/2016 with white blood cell count 2.1, hemoglobin 9.2, PLT 171,000, MCV 99. Sodium 141, potassium 4.1, total protein 6.0, calcium 7.7, albumin 3.2, total bilirubin 0.4, AST 46, ALT 149, alkaline phosphatase 177, BUN 6, creatinine 0.7. PAST MEDICAL HISTORY: Weight loss, malnutrition, chronic diarrhea, pancreatitis, chronic anemia, intermittent leukopenia. Clostridium difficile in 2007. PAST SURGICAL HISTORY: Laparotomy after perforated viscus ulcer. Laparotomy for twisted bowel in 2014 at . Back surgery for abscess. Bone marrow biopsies in the past. HOME MEDICATIONS: Tylenol #3, Zofran, pantoprazole. ALLERGIES: ERYTHROMYCIN, CLARITHROMYCIN, PENICILLIN, HEPARIN, PREDNISONE, TRAMADOL, KETOROLAC, WARFARIN, LORAZEPAM. SOCIAL HISTORY: He lives with his mother, denies any alcohol. He denies any tobacco use. FAMILY HISTORY: Noncontributory. PHYSICAL EXAMINATION: Nauseated, alert, awake, oriented but complaining of pain and fever. SKIN: No cyanosis. No clubbing. HEENT: Pupils reactive to light. Nonicteric conjunctivae. Normal mucosa. NECK: Supple. No JVD or lymph nodes. LUNGS: Bilateral breath sounds. HEART: Normal. ABDOMEN: Distended, soft. No rigidity. No rebound tenderness. Bowel sounds present. EXTREMITIES: No edema. NEURO: No focal motor deficit. Generalized weakness. IMPRESSION: 1) Leukopenia but improving progressively from 0.7 to 2.1 today. There is no obvious infection at this time. I discussed with the patient about further management including observation and continue to check CBC. The patient does not require any blood factor support. Will watch the patient and observe. 2) Anemia, chronic. At this time the patient's nutrition is deficient. The patient may require vitamins but will check other including B12, folate, TSH levels and will get the bone marrow biopsy report done in a different state for further information. Once we know the bone marrow biopsy report I will do my final dictation. The patient and the patient's mother understood. Their questions were answered. PLAN: 1) Continue present management. 2) Follow up in my office. 3) Will get the bone marrow biopsy reports. 4) Continue to check the CBC daily. 5) Blood factor support is required including switching to Procrit. Thank you very much Dr. Lorna Maza for allowing me to take care of your patient. If you have any questions do not hesitate to call me.
--- NOTE | 2016-03-11 09:54 | PCM.NOTE ---
Date and Time: 03/11/16 0949 Subjective Assessment: Patient continues to complain of abdominal pain that is worse in the lower belly. He reports he continues to have diarrhea about 8 times a day. He has taken some sips of fluids and would like to try more. He had a NG in place for 4-5 hours last night before he pulled this out. He was seen by Dr. Retana yesterday and I discussed his case with him and he is going to review the bone marrow biopsy report but does not think there is anything else to be done from a hematology stand point at this time. Earlier in his hospitalization, he adamantly refused TPN. He continues to ask if his pain medication dose will stay the same while he is here in the hospital. - Review of Systems Constitutional: No Symptoms Eyes: No Symptoms Ears, Nose, & Throat: No Symptoms Respiratory: No Symptoms Cardiac: No Symptoms Abdominal/Gastrointestinal: Abdominal Pain, Diarrhea Genitourinary Symptoms: No Symptoms Musculoskeletal: No Symptoms Skin: No Symptoms Objective Exam General Appearance: cachetic, thin, other (mother at bedside) Neurologic Exam: alert, other (anxious) Respiratory Exam: normal breath sounds, No rhonchi, No wheezing Cardiovascular Exam: regular rate/rhythm, normal heart sounds, No murmur, No friction rub, No gallop Gastrointestinal/Abdomen Exam: other (less distended than when he was admited, normal bowel sounds, subjective tenderness throughout, no guarding, no rigidity. ) Extremity Exam: other (no c/c/e) OBJECTIVE DATA Vital Signs: Vital Signs - 24 hr Temp Pulse Resp BP Pulse Ox 03/11/16 07:17 97.8 F 57 L 20 88/55 95 03/11/16 04:00 98.1 F 69 16 102/57 97 03/11/16 00:00 97.8 F 68 16 101/55 95 03/10/16 20:00 98.1 F 65 17 96/53 96 03/10/16 16:15 20 98 03/10/16 11:34 97.8 F 68 20 108/70 97 Pain Assessment - Last Documented Pain Intensity 10 Pain Scale Used 0-10 Pain Scale Intake and Output: Intake & Output 03/09/16 03/10/16 03/11/16 03/12/16 06:59 06:59 06:59 06:59 Intake Total 300 4323 1777 Balance 300 4323 1777 Weight 57.742 kg 56.88 kg 57.334 kg 55.792 kg Lab Results: Lab Results-Last 24 Hours 03/10/16 03/10/16 03/11/16 Range/Units 08:50 11:31 05:40 WBC 2.1 L 1.1 L* (4.0-10.5) K/mm3 RBC 2.84 L 2.75 L (4.1-5.6) M/mm3 Hgb 9.2 L 8.9 L (12.5-18.0) gm/dl Hct 28.3 L 27.4 L (42-50) % MCV 99.6 99.6 (78-100) fl MCH 32.3 H 32.3 H (26-32) pg MCHC 32.5 32.5 (32-36) g/dl RDW 12.5 12.4 (11.5-14.0) % Plt Count 171 181 (150-450) K/mm3 MPV 9.4 8.7 (6-9.5) fl Segmented Neutrophils 60 (36.-66.) % Lymphocytes (Manual) 32 (24-44) % Monocytes (Manual) 6 (0.0-12.0) % Eosinophils (Manual) 2 (0.00-3.0) % Platelet Estimate NORMAL (NORMAL) Poikilocytosis 1+ Anisocytosis 1+ Sodium (136-145) mEq/L Potassium (3.5-5.1) mEq/L Chloride (98-107) mEq/L Carbon Dioxide (21-32) mEq/L Anion Gap (5-15) MEQ/L BUN (9-20) mg/dL Creatinine (0.55-1.30) mg/dl Estimated GFR ML/MIN Glucose (70-110) MG/DL Calcium (8.5-10.1) mg/dL Total Bilirubin (0.2-1.0) mg/dL AST (15-37) U/L ALT (12-78) U/L Alkaline Phosphatase (46-116) U/L Serum Total Protein (6.4-8.2) gm/dL Albumin (3.4-5.0) g/dL Stl C. diff Tox B Gene NEGATIVE (NEGATIVE) C.difficile 027-[id number] PRESUMPTIVE NEGATIVE (NEGATIVE) 03/11/16 Range/Units 05:40 WBC (4.0-10.5) K/mm3 RBC (4.1-5.6) M/mm3 Hgb (12.5-18.0) gm/dl Hct (42-50) % MCV (78-100) fl MCH (26-32) pg MCHC (32-36) g/dl RDW (11.5-14.0) % Plt Count (150-450) K/mm3 MPV (6-9.5) fl Segmented Neutrophils (36.-66.) % Lymphocytes (Manual) (24-44) % Monocytes (Manual) (0.0-12.0) % Eosinophils (Manual) (0.00-3.0) % Platelet Estimate (NORMAL) Poikilocytosis Anisocytosis Sodium 138 (136-145) mEq/L Potassium 4.2 (3.5-5.1) mEq/L Chloride 104 (98-107) mEq/L Carbon Dioxide 31.1 (21-32) mEq/L Anion Gap 6.9 (5-15) MEQ/L BUN 6 L (9-20) mg/dL Creatinine 0.80 (0.55-1.30) mg/dl Estimated GFR > 60 ML/MIN Glucose 76 (70-110) MG/DL Calcium 7.7 L (8.5-10.1) mg/dL Total Bilirubin 0.4 (0.2-1.0) mg/dL AST 52 H (15-37) U/L ALT 104 H (12-78) U/L Alkaline Phosphatase 170 H (46-116) U/L Serum Total Protein 5.9 L (6.4-8.2) gm/dL Albumin 3.1 L (3.4-5.0) g/dL Stl C. diff Tox B Gene (NEGATIVE) C.difficile 027-[id number] (NEGATIVE) Radiology Exams: Radiology Procedures Category Date Time Status KUB Routine Exams 03/10/16 08:33 Completed KUB Urgent Exams 03/10/16 15:30 Completed Assessment/Plan (1) Adynamic ileus Current Visit: Yes Status: Acute Assessment & Plan: Patient refuses NG placement or TPN. He would like to try some more solid foods. He is passing stool as diarrhea. Code(s): K56.0 - PARALYTIC ILEUS (2) Chronic diarrhea Current Visit: Yes Status: Acute Assessment & Plan: Underlying cause is unclear. He has a machine stripper cutter he sees as an outpatient. He has some send out stool studies still pending. Code(s): K52.9 - NONINFECTIVE GASTROENTERITIS AND COLITIS, UNSPECIFIED (3) Leukopenia Current Visit: Yes Status: Acute Assessment & Plan: Follow up per railroad mechanic, Dr. Retana. Code(s): D72.819 - DECREASED WHITE BLOOD CELL COUNT, UNSPECIFIED (4) Malnutrition Current Visit: Yes Status: Acute Assessment & Plan: Continue vitamins in IV fluids. Patient has also stated he cannot take ensure either. Code(s): E46 - UNSPECIFIED PROTEIN-CALORIE MALNUTRITION (5) Folic acid deficiency Current Visit: Yes Status: Acute Assessment & Plan: Replacing in his IV fluids. Code(s): E53.8 - DEFICIENCY OF OTHER SPECIFIED B GROUP VITAMINS
[2016-03-11] MEDS: MORPHINE SULFATE 2 MG INJ IV PRN ×3 (12:26→20:30)
[2016-03-11 12:56] LABS: Giardia Antigen EIA Negative (Negative)
[2016-03-12] MEDS: MORPHINE SULFATE 2 MG INJ IV PRN ×6 (00:22→21:38)
[2016-03-12] MEDS: Zofran 4 MG/2 ML VIAL IV PRN ×4 (01:59→20:08)
[2016-03-12 05:49] LABS: Mean Cell Volume 98.6 fl (78-100); Mean Corpuscular Hemoglobin 32.3 pg (26-32); Mean Platelet Volume 9.1 fl (6-9.5); Platelet Count 207 K/mm3 (150-450); Red Blood Count 2.91 M/mm3 (4.1-5.6); Red Cell Distribution Width 12.5 % (11.5-14.0)
[2016-03-12 05:58] LABS: White Blood Count 1.5 K/mm3 (4.0-10.5)
[2016-03-12 06:28] LABS: ALBUMIN 3.3 g/dL (3.4-5.0); ALKALINE PHOSPHATASE 177 U/L (46-116); ANION GAP 6.7 MEQ/L (5-15); BILIRUBIN,TOTAL 0.3 mg/dL (0.2-1.0); BLOOD UREA NITROGEN 8 mg/dL (9-20); CHLORIDE 104 mEq/L (98-107); Carbon Dioxide 34.8 mEq/L (21-32); Glucose 94 MG/DL (70-110); Potassium 3.9 mEq/L (3.5-5.1); SGOT/AST 45 U/L (15-37); SGPT/ALT 126 U/L (12-78); SODIUM 142 mEq/L (136-145); Total Protein 6.3 gm/dL (6.4-8.2)
[2016-03-12 06:55] LABS: ANISOCYTOSIS 1+; Eosinophil 1 % (0.00-3.0); Platelet Estimate NORMAL (NORMAL); Poikilocytosis 1+; Total Cells Counted 100
[2016-03-12] MEDS: [UNRECOGNIZED DRUG - OTHER] IV SCH ×5 (14:02)
--- NOTE | 2016-03-12 17:31 | PCM.NOTE ---
Date and Time: 03/12/161725 Subjective Assessment: He continues to complain of lower abdominal pain. Asking about going to [facility] to see a java programming professor. Only took 40 mL of fluids. Very worried about his dose of morphine and asking to have it increased. He reports continued diarrhea. - Review of Systems Constitutional: Weakness Eyes: No Symptoms Ears, Nose, & Throat: No Symptoms Respiratory: No Symptoms Cardiac: No Symptoms Abdominal/Gastrointestinal: Abdominal Pain, Diarrhea Genitourinary Symptoms: No Symptoms Musculoskeletal: No Symptoms Skin: No Symptoms Objective Exam General Appearance: cachetic, thin, other (mother at bedside) Neurologic Exam: alert, cooperative Skin Exam: normal color, warm, dry, No rash Respiratory Exam: normal breath sounds, lungs clear, airway intact, No crackles/ rales, No rhonchi, No wheezing Cardiovascular Exam: regular rate/rhythm, normal heart sounds, No friction rub, No gallop, No tachycardia Gastrointestinal/Abdomen Exam: soft, normal bowel sounds, tenderness, No distention, No mass, No guarding Extremity Exam: other (no c/c/e) OBJECTIVE DATA Vital Signs: Vital Signs - 24 hr Temp Pulse Resp BP Pulse Ox 03/12/16 15:57 97.8 F 62 18 120/55 95 03/12/16 12:46 98.3 F 03/12/16 12:43 98 F 70 20 112/58 95 03/12/16 07:09 98.3 F 70 20 118/63 97 03/12/16 04:00 98.6 F 71 16 112/63 97 03/12/16 00:00 98.3 F 71 20 93/51 93 L 03/11/16 20:00 98.3 F 79 18 116/73 95 Pain Assessment - Last Documented Pain Intensity 10 Pain Scale Used 0-10 Pain Scale Intake and Output: Intake & Output 03/10/16 03/11/16 03/12/16 03/13/16 06:59 06:59 06:59 06:59 Intake Total 4323 1776 2044 80 Balance 4321776 80 Weight 56.88 kg 57.334 kg 55.792 kg 56.155 kg Lab Results: Lab Results-Last 24 Hours 03/12/16 03/12/16 Range/Units 05:20 05:20 WBC 1.5 L* (4.0-10.5) K/mm3 RBC 2.91 L (4.1-5.6) M/mm3 Hgb 9.4 L (12.5-18.0) gm/dl Hct 28.7 L (42-50) % MCV 98.6 (78-100) fl MCH 32.3 H (26-32) pg MCHC 32.8 (32-36) g/dl RDW 12.5 (11.5-14.0) % Plt Count 207 (150-450) K/mm3 MPV 9.1 (6-9.5) fl Segmented Neutrophils 59 (36.-66.) % Lymphocytes (Manual) 36 (24-44) % Monocytes (Manual) 4 (0.0-12.0) % Eosinophils (Manual) 1 (0.00-3.0) % Platelet Estimate NORMAL (NORMAL) Poikilocytosis 1+ Anisocytosis 1+ Sodium 142 (136-145) mEq/L Potassium 3.9 (3.5-5.1) mEq/L Chloride 104 (98-107) mEq/L Carbon Dioxide 34.8 H (21-32) mEq/L Anion Gap 6.7 (5-15) MEQ/L BUN 8 L (9-20) mg/dL Creatinine 0.86 (0.55-1.30) mg/dl Estimated GFR > 60 ML/MIN Glucose 94 (70-110) MG/DL Calcium 8.0 L (8.5-10.1) mg/dL Total Bilirubin 0.3 (0.2-1.0) mg/dL AST 45 H (15-37) U/L ALT 126 H (12-78) U/L Alkaline Phosphatase 177 H (46-116) U/L Serum Total Protein 6.3 L (6.4-8.2) gm/dL Albumin 3.3 L (3.4-5.0) g/dL Multi-Disciplinary Progress Notes: Multi-Disciplinary Progress Notes 03/12/16 11:51 Nutrition Note by Bisi Spence F/u Note: Pt receiving a regular diet with poor po intake. States he is not hungry, will only drink diet soda and turkey slices. Was upset because the turkey was on bread and asked for it in a separate bag, also unhappy the turkey was sliced too thick. Mother has been calling the kitchen multiple times per day demanding food for herself. Weight 03/12 = 56.155 kg - weight down 1.6#/4 days. fluid balance has decreased to +40 mls. Labs = BUN 8, alb 3.3, hgb 9.4, hct 28.7. Pt con't to refuse alt. feeding method. No other recommendations at this time. goal #1) po intake >=25% #2) no weight loss. Will monitor and f/u prn. JACLYN Quinones Initialized on 03/12/16 11:51 - END OF NOTE Assessment/Plan (1) Adynamic ileus Current Visit: Yes Status: Acute Assessment & Plan: Discussed with java programming professor, Dr. Pickard, through [facility] but he does not have admitting privledges there until this coming week. He recommended a general surgery consult while the patient is here. The patient refuses to go to [facility] for transfer. He continues to refuse NG. Dr. Pickard also recommeneded a rectal tube which the nursing staff tells me he also refuses. Decreased his morphine yesterday as it is most likely contributing to the ileus. Recommended that he try tylenol but he refuses this also. Code(s): K56.0 - PARALYTIC ILEUS (2) Chronic diarrhea Current Visit: Yes Status: Acute Assessment & Plan: All stool studies sent off so far have been negative. Code(s): K52.9 - NONINFECTIVE GASTROENTERITIS AND COLITIS, UNSPECIFIED (3) Leukopenia Current Visit: Yes Status: Acute Assessment & Plan: Dr. Retana says this is only a problem if he would develop a fever and verbally told me that he thought it was due to his poor nutrition. Code(s): D72.819 - DECREASED WHITE BLOOD CELL COUNT, UNSPECIFIED (4) Malnutrition Current Visit: Yes Status: Acute Assessment & Plan: Our contract accountant has seen him. He continues to refuse TPN and states he is unable to eat. His overall prognosis is poor given his poor nutrition. Code(s): E46 - UNSPECIFIED PROTEIN-CALORIE MALNUTRITION (5) Folic acid deficiency Current Visit: Yes Status: Acute Assessment & Plan: Continue with replacement through IV fluids. Code(s): E53.8 - DEFICIENCY OF OTHER SPECIFIED B GROUP VITAMINS
[2016-03-13] MEDS: MORPHINE SULFATE 2 MG INJ IV PRN ×3 (01:33→09:37)
[2016-03-13] MEDS: Zofran 4 MG/2 ML VIAL IV PRN ×2 (02:32→08:35)
[2016-03-13] MEDS: [UNRECOGNIZED DRUG - OTHER] IV SCH ×5 (03:46)
[2016-03-13] MEDS ORDERED: D5W/0.45NS W/ 20mEq KCl 1000 ML 1,000 ML IV ONE (03:47)
[2016-03-13 05:57] LABS: Mean Cell Volume 99.7 fl (78-100); Mean Corpuscular Hemoglobin 31.9 pg (26-32); Platelet Count 235 K/mm3 (150-450); Red Blood Count 3.13 M/mm3 (4.1-5.6); Red Cell Distribution Width 12.6 % (11.5-14.0)
[2016-03-13 06:02] LABS: White Blood Count 1.2 K/mm3 (4.0-10.5)
[2016-03-13 10:59] LABS: ANISOCYTOSIS 1+; Basophil 3 % (0.0-1.0); Eosinophil 1 % (0.00-3.0); Platelet Estimate NORMAL (NORMAL); Total Cells Counted 100
[2016-03-13] MEDS ORDERED: MORPHINE SULFATE 2 MG INJ IV ONE (11:06)
--- NOTE | 2016-03-13 11:07 | PCM.DS ---
Discharge Summary Date of Admission: 03/08/16 09:00 Date of Discharge: 03/13/2016 Admitting Physician: NEELIMA MANZANARES Consults: Consults on Case 03/08/16 09:03 Consult Hematology/Onocology ROUTINE 03/08/16 09:05 Diet Consult [Nutritional Consult] ROUTINE 03/12/16 10:40 Consult Surgery ROUTINE Primary Care Provider: NEELIMA MANZANARES Allergies Allergies clarithromycin [From Biaxin] Allergy (Verified 03/06/16 20:24) erythromycin base Allergy (Verified 03/06/16 20:24) heparin Allergy (Verified 03/06/16 20:24) ketorolac [From Toradol] Allergy (Verified 03/06/16 20:24) Penicillins Allergy (Verified 03/06/16 20:24) prednisone Allergy (Verified 03/06/16 20:24) tramadol Allergy (Verified 03/06/16 20:24) warfarin [From Coumadin] Allergy (Verified 03/06/16 20:24) lorazepam [From Ativan] Adverse Reaction (Verified 03/10/16 15:48) Hospital Summary - Hospital Course Hospital Course: Mr. Bal is a very poorly compliant patient. He has a complicated past medical history that is more complicated by his seeking medical care at multiple facilities across multiple states in a short time span. From the best we can put together from the records we have available and his history he was originally living in [place] but not working he has in the past developed a peptic ulcer then a volvulus that both required surgeries. He was apparently overweight in the past at around 300 lbs and saw a granite polisher machine who put him on a 500 Calorie diet. He was also seeing GI doctors there for apparent chronic problems with this but was never given any diagnosis including with his stay he had a [facility] for the cause of his chronic GI complaints. He presented to our ED after recent discharges against medical advice from [facility] and [facility] and a stay in [place], [place] as well. He was complainin of severe diarrhea and abdominal pain. He was found to have fluid distended stomach on CT and was having copious watery diarrhea. He had elevated liver enzymes. He adimetaly refused any transfer to tertiary center, he did eventually agree to an NG but only for a couple hours before removing it. He initially agreed to see the surgeon but then refused to see them as well. He refused to talk with the psychiatry via [facility]. He was seen by hematology regarding his low wbc count and anemia and his recent bone marrow biopsy results were obtained and the low levels were felt to be due to malnutrition. It appears most likely Mr. 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 He may very well also have underlying psychological disorder perhaps severe OCD or autism spectrum disorder as well. I spent about 45 minutes on the day of discharge discussing with the patient and the patient's mother the severity of his current illness and that his refusal of treatment could result in his . He refuses any TPN or enteral feedings. I highly recommended starting an SSRI and he refuses this as well. When asked his reasons he states that he does not want to take medications that he can do this on his own if he increases his diet on his own. He denies that he is depressed. He denies hallucinations, delusions, or compulsions. He denies he is trying to harm himself. He states he understands that he is very sick, but thinks it is all physical illness and refuses to have any psychiatric evaluation for this. We also discussed involuntary hold with him, if he was determined to be unable to make appropriate decisions for himself. He actually had his laptop out and was researching the laws in the state about how we could not force him to undergo treatment against his will. He does appear to have a psychological disorder and he was strongly encouraged to seek treatment for this. I recommended trial of fluvoxamine and I wrote a script for it. He states he does not want to take it but I encourage him and his mother to reconsider. We discussed he needs to eat small frequent low residual meals. We discussed appropriate Calorie content. He seems rather obsessive about his food see dietary notes about how he will only eat certain things and would not eat turkey after it touched bread. He insists before the last few weeks he would eat 2000 Calories a day but when confronted on exactly what he ate it appears this is very unlikely. With his refusal to see the surgeon today we discussed we really are out of options to be able to help him in the inpatient setting. He is encouraged to keep his outpatient appointments he has with GI, hematology and primary care and again to seek psychiatric care as well. With his malnurishment and low wbc we discussed that endoscopy and colonoscopy would be very dangerous if his nutritional status does not improve first. - Vitals & Intake/Output Vital Signs: Vital Signs Temperature 98.1 F 03/13/16 08:00 Pulse Rate 61 03/13/16 08:00 Respiratory Rate 18 03/13/16 08:00 Blood Pressure 119/62 03/13/16 08:00 O2 Sat by Pulse Oximetry 96 03/13/16 08:00 Intake & Output: Intake & Output 03/10/16 03/11/16 03/12/16 03/13/16 11:59 11:59 11:59 11:59 Intake Total 2124 1776 2084 1740 Balance 2124 1776 2084 1740 Weight 57.334 kg 55.792 kg 56.155 kg - Lab Result Diagrams: 03/13/16 05:20 03/12/16 05:20 Lab Results-Last 24 Hrs: Lab Results-Last 24 Hours 03/13/16 Range/Units 05:20 WBC 1.2 L* (4.0-10.5) K/mm3 RBC 3.13 L (4.1-5.6) M/mm3 Hgb 10.0 L (12.5-18.0) gm/dl Hct 31.2 L (42-50) % MCV 99.7 (78-100) fl MCH 31.9 (26-32) pg MCHC 32.1 (32-36) g/dl RDW 12.6 (11.5-14.0) % Plt Count 235 (150-450) K/mm3 MPV 9.0 (6-9.5) fl Segmented Neutrophils 68 H (36.-66.) % Lymphocytes (Manual) 21 L (24-44) % Monocytes (Manual) 7 (0.0-12.0) % Eosinophils (Manual) 1 (0.00-3.0) % Basophils (Manual) 3 H (0.0-1.0) % Differential Comment ABNORMAL Platelet Estimate NORMAL (NORMAL) Anisocytosis 1+ Discharge Exam General Appearance: cachetic, thin (discheveled appearance, depressed affect, poor eye contact) Neurologic Exam: alert, oriented x 3, motor weakness, other, No cooperative Skin Exam: pale Eye Exam: pale conjunctivae, No scleral icterus Ears, Nose, Throat Exam: moist mucous membranes Neck Exam: normal inspection, non-tender, supple Respiratory Exam: normal breath sounds, lungs clear Cardiovascular Exam: regular rate/rhythm, normal heart sounds Gastrointestinal/Abdomen Exam: soft, tenderness (diffuse), No mass, No guarding , No ecchymosis Extremity Exam: other (severe proximal muscle wasting), No calf tenderness, No pedal edema Final Diagnosis/Problem List - Final Discharge Diagnosis/Problem (1) Malnutrition Status: Acute (2) Anorexia nervosa Status: Suspected Assessment & Plan: likely diagnoses that has led to the hepatitis, gastoperesis, malabsorption diarrhea, leukopenia, osteoporosis. Old records from [place] and [facility] may shed more light on underlaying possible organic etiology to the bowel disorder. He needs to keep GI follow up and needs to have psychiatric evaluation rule out obsessive compulsive disorder, severe depression, autism spectrum disorder (3) Hepatitis Status: Acute (4) Gastroparesis Status: Acute (5) Diarrhea Status: Acute (6) Leukopenia Status: Acute (7) Osteoporosis Status: Acute (8) Anemia Status: Acute - Discharge Disposition: Home, Self-Care Condition: Poor Prescriptions: Multivitamin [[employer] Vitamins] 2 each PO DAILY #60 tab.chew Fluvoxamine Maleate [Fluvoxamine Maleate ER] 100 mg PO DAILY #30 cap.er.24h Pantoprazole 20 mg [Protonix 20MG Tablet] 1 tab PO DAILY #30 tab Acetaminophen with Codeine [Tylenol #3 (Acetaminophen-Cod #3) Tablet] 1 each PO Q8H PRN #6 tablet PRN Reason: Pain Ondansetron HCl [Zofran] 1 tab PO Q4H PRN #12 tablet PRN Reason: Nausea Medications: Home Medications Codeine Phosphate/APAP #3 [Tylenol #3 Tablet] 1 tab DAILY PRN 03/06/16 [ Confirmed 03/06/16] Ondansetron HCl [Zofran] 1 tab DAILY 03/06/16 [Confirmed 03/06/16] Pantoprazole 20 mg [Protonix 20MG Tablet] 1 tab DAILY 03/06/16 [Confirmed 03/06/16] Active Inpatient Medications Acetaminophen (Tylenol 325 Mg) 650 mg PO Q4H PRN PRN PRN Reason: PAIN AND/OR FEVER Stop: 04/06/16 00:35 Last Admin: 03/08/16 13:26 Dose: 650 mg Multivitamins/Minerals 10 ml/Potassium Chloride 20 meq/Folic Acid 1 mg/ Dextrose /Sodium Chloride 1,020.2 mls @ 80 mls/hr IV .BY DURATION [facility] Stop: 04/08/16 09:29 Last Admin: 03/12/16 14:02 Dose: 80 mls/hr Potassium Chloride/Dextrose/Sod Cl (D5w/0.45ns W/ 20meq Kcl 1000 Ml) 1,000 mls @ 80 mls/hr IV .BY DURATION [facility] Stop: 04/08/16 09:29 Last Admin: 03/13/16 03:46 Dose: 80 mls/hr Morphine Sulfate (Morphine Sulfate 2 Mg Inj) 2 mg IV Q4H PRN PRN PRN Reason: PAIN Stop: 03/16/16 09:54 Last Admin: 03/13/16 09:37 Dose: 2 mg Morphine Sulfate (Morphine Sulfate 2 Mg Inj) 2 mg IV ONCE ONE Stop: 03/13/16 11:07 Ondansetron HCl (Zofran 4 Mg/2 Ml Vial) 4 mg IV Q6H PRN PRN PRN Reason: NAUSEA/VOMITING Stop: 04/06/16 00:35 Last Admin: 03/13/16 08:35 Dose: 4 mg Instructions: Anorexia Nervosa, Malnutrition - Older Adults Follow up with: BRYON SINHA [COURTESY STAFF] - 1 Week DOCTOR,NO FAMILY [NON-STAFF PHY W/O PRIVILEGES] - ANA RODRIGUES JR [NON-STAFF PHY W/O PRIVILEGES] - 1 Week NEELIMA MANZANARES [Primary Care Provider] - 03/22/16 1:15 pm Forms: Discharge Instructions, Patient Portal Information
--- NOTE | 2016-03-13 11:12 | PCM.DCORD ---
- Discharge Discharge Date: 03/13/16 Disposition: Home, Self-Care Condition: Poor Prescriptions: Multivitamin [[employer] Vitamins] 2 each PO DAILY #60 tab.chew Fluvoxamine Maleate [Fluvoxamine Maleate ER] 100 mg PO DAILY #30 cap.er.24h Pantoprazole 20 mg [Protonix 20MG Tablet] 1 tab PO DAILY #30 tab Acetaminophen with Codeine [Tylenol #3 (Acetaminophen-Cod #3) Tablet] 1 each PO Q8H PRN #6 tablet PRN Reason: Pain Ondansetron HCl [Zofran] 1 tab PO Q4H PRN #12 tablet PRN Reason: Nausea Medications: Home Medications Codeine Phosphate/APAP #3 [Tylenol #3 Tablet] 1 tab DAILY PRN 03/06/16 [ Confirmed 03/06/16] Ondansetron HCl [Zofran] 1 tab DAILY 03/06/16 [Confirmed 03/06/16] Pantoprazole 20 mg [Protonix 20MG Tablet] 1 tab DAILY 03/06/16 [Confirmed 03/06/16] Active Inpatient Medications Acetaminophen (Tylenol 325 Mg) 650 mg PO Q4H PRN PRN PRN Reason: PAIN AND/OR FEVER Stop: 04/06/16 00:35 Last Admin: 03/08/16 13:26 Dose: 650 mg Multivitamins/Minerals 10 ml/Potassium Chloride 20 meq/Folic Acid 1 mg/ Dextrose /Sodium Chloride 1,020.2 mls @ 80 mls/hr IV .BY DURATION [facility] Stop: 04/08/16 09:29 Last Admin: 03/12/16 14:02 Dose: 80 mls/hr Potassium Chloride/Dextrose/Sod Cl (D5w/0.45ns W/ 20meq Kcl 1000 Ml) 1,000 mls @ 80 mls/hr IV .BY DURATION [facility] Stop: 04/08/16 09:29 Last Admin: 03/13/16 03:46 Dose: 80 mls/hr Morphine Sulfate (Morphine Sulfate 2 Mg Inj) 2 mg IV Q4H PRN PRN PRN Reason: PAIN Stop: 03/16/16 09:54 Last Admin: 03/13/16 09:37 Dose: 2 mg Morphine Sulfate (Morphine Sulfate 2 Mg Inj) 2 mg IV ONCE ONE Stop: 03/13/16 11:07 Ondansetron HCl (Zofran 4 Mg/2 Ml Vial) 4 mg IV Q6H PRN PRN PRN Reason: NAUSEA/VOMITING Stop: 04/06/16 00:35 Last Admin: 03/13/16 08:35 Dose: 4 mg Follow up with: BRYON SINHA [COURTESY STAFF] - 1 Week DOCTOR,NO FAMILY [NON-STAFF PHY W/O PRIVILEGES] - NEELIMA MANZANARES [Primary Care Provider] - 03/22/16 1:15 pm ANA RODRIGUES JR [NON-STAFF PHY W/O PRIVILEGES] - 1 Week Forms: Patient Portal Information
[2016-03-13 12:31] VITALS: BP 133/83; PULSE 60; O2SAT 98
== END 2016-03-13 12:45 | disposition home or self-care (01) | DRG 641 ==
LOC: ED 20:09 → MED SURG 03-07 00:08 → OBSVTOIN 03-08 09:00
PROVIDERS: ADMIT Internal Medicine; ATTEND Internal Medicine
DX: E46 Unspecified protein-calorie malnutrition (principal); F50.01 Anorexia nervosa, restricting type; K56.0 Paralytic ileus; K75.9 Inflammatory liver disease, unspecified; K31.84 Gastroparesis; R19.7 Diarrhea, unspecified; D72.819 Decreased white blood cell count, unspecified; D64.9 Anemia, unspecified; E53.8 Deficiency of other specified B group vitamins; M81.0 Age-related osteoporosis without current pathological fracture; Z79.899 Other long term (current) drug therapy; K52.9 Noninfective gastroenteritis and colitis, unspecified
CPT/HCPCS: 36000; 36415; 71010; 74000; 74022; 74177; 80048; 80053; 80307; 81000; 82140; 82330; 82607; 82728; 82746; 82784; 83516; 83540; 83550; 83605; 83690; 83735; 83970; 84376; 84425; 84443; 84591; 85025; 85027; 85060; 86644; 86645; 87045; 87046; 87177; 87209; 87335; 87493; 93005; 96360; 96361; 96374; 96375; 99284; G0378; J2270; J2405; J3480